=== PATIENT | male | born 1960 | race Caucasian/White ===

== ENCOUNTER → 2021-04-10 10:11 | Outpatient (BNVA) | payer OTHER, SELFPAY | PROVIDERS: PCP Internal Medicine; Visit Provider Urology ==

== ENCOUNTER → 2022-12-06 10:39 | Outpatient (BNVA) | payer BC, SELFPAY | PROVIDERS: PCP Internal Medicine; Visit Provider Nurse Practitioner Family ==

== ENCOUNTER 2023-03-30 16:19 | Outpatient (REF) | payer BC, SELFPAY ==
--- NOTE | ~2023-03-30 | US_ITS ---
EXAMINATION: US RETROPERITONEAL LIMITED (RENAL ONLY) CLINICAL INFORMATION: Calculus of kidney. COMPARISON: Renal ultrasound 03/12/2019 and 12/06/2017. TECHNIQUE: Real-time imaging of the kidneys. FINDINGS: RIGHT KIDNEY: 12.2 x 5.8 x 6.5 cm (SAG x AP x TRV). The kidney is normal in size, contour, and echogenicity. Renal cortical thickness is normal. No calculi or focal parenchymal lesions. No hydronephrosis. LEFT KIDNEY: 13.0 x 5.7 x 5.6 cm (SAG x AP x TRV). The kidney is normal in size, contour, and echogenicity. Renal cortical thickness is normal. No calculi or focal parenchymal lesions. No hydronephrosis. US/US renal BI IMPRESSION: Normal renal ultrasound. No hydronephrosis or nephrolithiasis.
== END 2023-03-30 16:20 | disposition home or self-care (01) ==
LOC: HO.US 16:19
PROVIDERS: Visit Provider Nurse Practitioner Family
DX: N20.0 Calculus of kidney (principal)
CPT/HCPCS: 76775

== ENCOUNTER 2024-04-02 11:26 | Outpatient (AMB) | payer BC, SELFPAY ==
--- NOTE | 2024-04-02 11:27 | A.OFFVIS_ITS ---
Intake Visit Reasons: follow up/U/S Intake Note: Patient is present for f/u Urology Medication:Tadalafil Antibiotic Allergy:none Blood Thinner:none Baseball Glove Shaper Required: No Allergies hayfever Allergy (Unknown, Uncoded 04/02/24 11:53) Unknown Medication List - Last Reconciled 04/02/24 by SIOMARA Gleason tadalafil (Cialis) 5 mg PO DAILY 90 days vardenafil 20 mg PO DAILY PRN HPI Comments Details: Carter is a pleasant 63-year-old male patient of Dr. Hope. He presents to the office today for follow-up of his nephrolithiasis and elevated PSA. In discussion with the patient today he reports since his last office visit here over 1 year ago he has had no bothersome urinary issues or concerns. He reports compliance with 5 mg of Cialis daily and feels this has been helpful with episodes of nocturia as well as ED he had been experiencing. In review of patient's chart it appears during last office visit over 18 months ago recommendations were made for 4 month follow-up however in discussion with the patient today he feels he has had no bothersome issues so he did not feel this was necessary. We discussed importance in doing so and potential for delay in treatment. Previous renal ultrasound results reviewed with the patient today. Bilateral kidneys with no calculi, lesions, and or hydronephrosis. Normal renal ultrasound. PSAs are as follows: PSA: 10/24 4.9, 10/24 2.7 During last office visit recommendation was also made for redraw of PSA in 4 months however this was never obtained.We discussed at length importance in doing so in relation to history of elevated PSA. When asked he currently denies any bothersome urinary issues or concerns. He otherwise denies urinary urgency, urinary frequency, incontinence, hematuria, dysuria, foul smelling urine, changes to urinary stream, flank pain, fever, and or chills. In office urinalysis results reviewed with the patient today. GAVIN offered however deferred. Patient otherwise denies any issues or concerns at this time. [facility] Surgical History (Updated 12/06/22 @ 13:41 by SIOMARA Glesaon) History of left hip replacement Review of Systems Const All systems reviewed & are unremarkable except as noted in HPI and below Reports no additional complaints Eyes Reports no additional complaints ENT Reports no additional complaints Card Reports no additional complaints Resp Reports no additional complaints GI Reports no additional complaints Reports as per HPI Musc Reports no additional complaints Neuro Reports no additional complaints Psych Reports no additional complaints Endo Reports no additional complaints William/Lymph Reports no additional complaints Aller/Immun Reports no additional complaints Physical Exam Const General: cooperative, healthy appearing, comfortable, no acute distress, well developed, alert and awake Orientation/consciousness: patient oriented x3 Limitations: no limitations HEENT Head: Yes normal to inspection, Yes normocephalic and Yes atraumatic Ears: hearing grossly normal bilaterally Eyes General: appearance normal, both eyes and all related structures Neck Neck: Yes normal visual inspection and Yes trachea midline Chest Chest palpation & inspection: normal inspection of the chest Resp Effort & Inspection: normal respiratory effort and able to speak in complete sentences Cardio Rate: regular rate GI Inspection: Yes normal to inspection Rectal Exam - Male: Yes deferred General: Yes no CVA tenderness Back/Spine/Pelvis Back: no CVA tenderness Skin General skin exam: no rashes or lesions noted Neuro General: patient oriented x3 Extrem General: Yes normal to inspection Psych Appearance: grossly normal and well kempt Mental Status: mental status grossly normal Speech and movement: Normal speech and movement present and Clear speech present Affect: normal affect Attitude: cooperative Thought process: Normal thought process present Thought content: Normal thought content present Insight: Good insight present (Psych) Judgement: Good judgement present (Psych) Results AMB Urinalysis, Automated UA Leukoctes 0 Tomeka/uL Last Edit by SAVANNAH Rainey on 04/02/24 11:38 UA Nitrite Negative Last Edit by SAVANNAH Rainey on 04/02/24 11:38 UA Urobilinogen 0.2 mg/dL Last Edit by SAVANNAH Rainey on 04/02/24 11:3 8 UA Protein 0 mg/dL Last Edit by SAVANNAH Rainey on 04/02/24 11:38 UA pH 6.0 Last Edit by SAVANNAH Rainey on 04/02/24 11:38 UA Blood 0 Trevor/uL Last Edit by SAVANNAH Rainey on 04/02/24 11:38 UA Specific Whitfield 1.010 Last Edit by SAVANNAH Rainey on 04/02/24 11: 38 UA Ketone Negative Last Edit by SAVANNAH Rainey on 04/02/24 11:38 UA Bilirubin 0 mg/dL Last Edit by SAVANNAH Rainey on 04/02/24 11:38 UA Glucose 0 mg/dL Last Edit by SAVANNAH Rainey on 04/02/24 11:38 Results Reviewed Results Reviewed: Laboratory Last Values Urine pH (Auto) 6.0 04/02/24 11:36 Specific Whitfield (Auto) 1.010 04/02/24 11:36 Urine Protein (Auto) 0 mg/dL 04/02/24 11:36 Glucose (UA)(Auto) 0 mg/dL 04/02/24 11:36 Urine Ketones (Auto) Negative 04/02/24 11:36 Urine Blood (Auto) 0 Trevor/uL 04/02/24 11:36 Urine Nitrite (Auto) Negative 04/02/24 11:36 Urine Bilirubin (Auto) 0 mg/dL 04/02/24 11:36 Urine Urobilinogen (Auto) 0.2 mg/dL 04/02/24 11:36 Leukocyte Esterase (Auto) 0 Tomeka/uL 04/02/24 11:36 Date of Service: 03/30/23 EXAMINATION: US RETROPERITONEAL LIMITED (RENAL ONLY) FINDINGS: RIGHT KIDNEY: 12.2 x 5.8 x 6.5 cm (SAG x AP x TRV). The kidney is normal in size, contour, and echogenicity. Renal cortical thickness is normal. No calculi or focal parenchymal lesions. No hydronephrosis. LEFT KIDNEY: 13.0 x 5.7 x 5.6 cm (SAG x AP x TRV). The kidney is normal in size, contour, and echogenicity. Renal cortical thickness is normal. No calculi or focal parenchymal lesions. No hydronephrosis. IMPRESSION: Normal renal ultrasound. No hydronephrosis or nephrolithiasis. Assessment & Plan Assessment & Plan (1) Nephrolithiasis: Code(s): N20.0 - Calculus of kidney Category: Medical (2) Erectile dysfunction: Code(s): N52.9 - Male erectile dysfunction, unspecified Category: Medical (3) Weak urinary stream: Code(s): R39.12 - Poor urinary stream Category: Medical (4) Nocturia: Code(s): R35.1 - Nocturia Category: Medical Plan In office urinalysis results reviewed with the patient today; as noted above. Previous renal ultrasound results reviewed with the patient today; as noted above. Continue Cialis 5 mg daily as discussed and prescribed; refill provided. Patient currently denies any bothersome urinary issues or concerns. He reports be happy with current voiding parameters. Discussed, educated, and stressed the importance of following up as recommended and importance in doing so given history of elevated PSA and potential delay in treatment. Discussed obtaining PSA now as well as in 1 year. Will obtain renal ultrasound in 1 year. Follow-up in 1 year with imaging and labs to be completed prior; or sooner with any issues, concerns, and or questions. Orders: Orders US renal BI 1 Year N20.0 - Calculus of kidney Prostate Specific Antigen 1 Year R35.1 - Nocturia, R39.12 - Poor urinary stream AMB Urinalysis Automated Today Z13.9 - Encounter for screening, unspecified Prostate Specific Antigen Today R35.1 - Nocturia, R39.12 - Poor urinary stream Medications: Refilled tadalafil (Cialis) [id number] [facility] [id number] Member [id number] 5 mg PO DAILY 90 days 90 tabs 3RF Patient Instructions: The patient had an opportunity to ask questions regarding the treatment plan. All questions were answered. Physical exam, labs, and imaging were discussed and reviewed in detail. As well as risks, benefits, and discussion of treatment choices. No major barriers to understanding were identified. The patient expressed understanding and agreement with the above treatment plan. The patient was made aware they should contact our office by phone for worsening of their current condition, the appearance of new symptoms, or with any questions or concerns. Compliance is encouraged with any medications and follow up testing that is ordered. It is a privilege to be allowed the opportunity to participate in? your urological care.? Again, if you have any questions or concerns If you have any questions or concerns please do not hesitate to contact me. The office is [phone]. This note is constructed using voice recognition software. While every effort has been made to ensure accuracy chief enterprise architect errors may have been included. Yours sincerely, SIOMARA Gleason Coding Level of Care Code Est Pt Level 3 (76177) Diagnoses Nephrolithiasis N20.0 Erectile dysfunction N52.9 Weak urinary stream R39.12 Nocturia R35.1
== END 2024-04-02 11:55 | disposition home or self-care (01) ==
PROVIDERS: PCP Internal Medicine; Visit Provider Nurse Practitioner Family
DX: N20.0 Calculus of kidney (principal); N52.9 Male erectile dysfunction, unspecified; R39.12 Poor urinary stream; R35.1 Nocturia; Z13.9 Encounter for screening, unspecified
CPT/HCPCS: 99213

== ENCOUNTER → 2024-04-02 11:26 | Outpatient (BNVA) | payer BC, SELFPAY | PROVIDERS: PCP Internal Medicine; Visit Provider Nurse Practitioner Family | DX: N52.9 Male erectile dysfunction, unspecified (principal); R39.12 Poor urinary stream; R35.1 Nocturia; Z87.442 Personal history of urinary calculi; Z79.899 Other long term (current) drug therapy | CPT/HCPCS: 81003 ==

== ENCOUNTER 2025-01-08 09:22 | Outpatient (AMB) | payer BC, SELFPAY ==
--- NOTE | 2025-01-08 09:22 | MHC.OFFVIS ---
Intake Visit Reasons: discuss imaging need Intake Note: Patient is present via telehealth to discuss imaging need Urology Medication:Tadalafil Antibiotic Allergy:none Blood Thinner:none Library Circulation Department Chief Required: No Allergies hayfever Allergy (Unknown, Uncoded 04/02/24 11:53) Unknown Medication List - Last Reconciled 01/08/25 by MARCOS Gleason- tadalafil (Cialis) 5 mg PO DAILY 90 days HPI Comments Details: Carter is a pleasant 64-year-old male patient of Dr. Hope. He is being followed up on today via video telehealth for his nephrolithiasis and elevated PSA. In discussion with the patient today he reports to be doing and feeling well. He discusses scheduling today's appointment to discuss plan of care. He reports episode of nephrolithiasis was many years ago (15 years ago) and does not wish to continue with surveillance monitoring of nephrolithiasis at this time as he has not had any issues with kidney stones in many years. He does report recently following up with his PCP for his annual physical and believes he had PSA perform a PCP. However call to PCP no recent lab value for PSA. We did discussed importance in doing so. During last office visit patient had been experiencing episodes of nocturia as well as ED in recommendations were made for low-dose 5 mg Cialis daily for bladder stability as well as potential treatment for ED. He does feel this has been helpful however is enquiring potential increased. We did discussed daily dosing of tadalafil with p.r.n. dosing/on demand dosing. We discussed lifestyle modifications to assist with ED as well as further treatment options and risks and benefits of these treatment options. He otherwise denies any bothersome urinary issues. He denies urinary urgency, urinary frequency, incontinence, hematuria, dysuria, foul smelling urine, changes to urinary stream, flank pain, fever, and or chills. PSAs are as follows: PSA: 10/24 4.9, 10/24 2.7 Patient otherwise denies any issues or concerns at this time. [facility] Surgical History History of left hip replacement Review of Systems Const All systems reviewed & are unremarkable except as noted in HPI and below Reports no additional complaints Eyes Reports no additional complaints ENT Reports no additional complaints Card Reports no additional complaints Resp Reports no additional complaints GI Reports no additional complaints Reports as per HPI Musc Reports no additional complaints Neuro Reports no additional complaints Psych Reports no additional complaints Endo Reports no additional complaints William/Lymph Reports no additional complaints Aller/Immun Reports no additional complaints Physical Exam Const General: cooperative, comfortable, no acute distress and well developed Orientation/consciousness: patient oriented x3 Resp Effort & Inspection: normal respiratory effort and able to speak in complete sentences Neuro General: patient oriented x3 Psych Appearance: well kempt Speech and movement: Clear speech present Attitude: cooperative Thought content: Normal thought content present Insight: Fair insight present (Psych) Judgement: Fair judgement present (Psych) Telehealth Telehealth Telehealth Platform: [employer] Location of provider rendering services: practice address Location of patient: address on file Patient Identification confirmed using: Name, : Yes Telehealth method: video Patient verbally consented to treatment: Yes Patient verbally consented to billing insurance company: Yes Patient informed of any privacy concerns related to visit: Yes Minutes spent on Phone/Video with Pt.: 15 Assessment & Plan Assessment & Plan (1) Nocturia: Code(s): R35.1 - Nocturia Category: Medical (2) Erectile dysfunction: Code(s): N52.9 - Male erectile dysfunction, unspecified Category: Medical Plan We discussed potential causes of ED as well as further treatment options and risks and benefits of these treatment options. We discussed lifestyle modifications to assist with ED as well as overall health and well-being. Continue Cialis daily. Prescription provided for p.r.n. dosing. We discussed importance of obtaining PSA with history of elevated PSA in the past. Will obtain PSA and testosterone free and total for further assessment evaluation. He currently denies any bothersome urinary issues. He reports be happy with current voiding parameters. Follow-up in 3-6 months with PSA; or sooner with any issues, concerns, and or questions. Orders: Orders Prostate Specific Antigen Today N52.9 - Male erectile dysfunction, unspecified, Z12.5 - Encounter for screening for malignant neoplasm of prostate Testosterone, Free/Total Today N52.9 - Male erectile dysfunction, unspecified Medications: New tadalafil (Cialis) Take 1 tablet 1 hour prior to sexual activity not to exceed more than 3 times per week 10 mg PO .PRN PRN 12 tabs 3RF sexual activity 30 days Refilled tadalafil (Cialis) [id number] [facility] [id number] Member [id number] 5 mg PO DAILY 90 tabs 3RF 90 days Patient Instructions: The patient had an opportunity to ask questions regarding the treatment plan. All questions were answered. Physical exam, labs, and imaging were discussed and reviewed in detail. As well as risks, benefits, and discussion of treatment choices. No major barriers to understanding were identified. The patient expressed understanding and agreement with the above treatment plan. The patient was made aware they should contact our office by phone for worsening of their current condition, the appearance of new symptoms, or with any questions or concerns. Compliance is encouraged with any medications and follow up testing that is ordered. It is a privilege to be allowed the opportunity to participate in? your urological care.? Again, if you have any questions or concerns If you have any questions or concerns please do not hesitate to contact me. The office is [phone]. This note is constructed using voice recognition software. While every effort has been made to ensure accuracy computer help desk representative errors may have been included. Yours sincerely, SIOAMRA Gleason Coding Level of Care Code Tele Est Pt Level 3 (02927) Complex EM visit Add On G2211 Diagnoses Nocturia R35.1 Erectile dysfunction N52.9
--- OUTSIDE RECORDS SUMMARY | 2025-01-08 09:47 | XMS_ITS | Clinical Summary ---
Author Organization [facility] [address] Address [address] [place] [address] Phone Care Team Providers Care Inner Tube Inserter Name Role Phone Matthew Hope MD Primary Care Provider [phone] Allergies Active Allergy Reactions Criticality Noted Date Comments Oxycodone-Acetaminophen 11/29/2024 Medications atorvastatin (LIPITOR) 10 mg tablet Take 1 tablet (10 mg total) by mouth 1 (one) time each day. 11/19/2024 Active tadalafiL (CIALIS) 5 mg tablet Take 1 tablet (5 mg total) by mouth 1 (one) time each day. 11/24/2024 Active Zepbound 7.5 mg/0.5 mL injection 11/27/2024 Active Encounters Date Type Department Care Team Description 11/29/2024 Telephone Gastroenterology - [address] [id number] Ken Yan MD SPECIAL PROCEDURE from Last 3 Months Social History Tobacco Use Types Packs/Day Years Used Date Smoking Tobacco: Never Assessed Sex and Gender Information Value Date Recorded Sex Assigned at Not on file Legal Sex Male 12:11 AM EST Gender Identity Not on file Sexual Orientation Not on file Plan of Treatment Upcoming Encounters Date Type Department Care Team ([facility] st Contact Info) Description 03/01/2025 11:00 AM EDT Appointment [facility] Endoscopy [address] [place] [id number] Pee Silva MD [address] [id number] Health Maintenance Due Date Last Done Comments DTaP,Tdap,and Td Vaccines (1 - Tdap) 1981 Pneumococcal Vaccine: 50+ Ye ars (1 of 1 - PCV) 2012 Zoster Vaccines (1 of 2) 2012 Cholesterol Screening (Lipid Panel) 06/06/2022 Colorectal Cancer Screening: Colonoscopy 06/06/2022 Depression Screening 06/06/2022 HIV Screening 06/06/2022 Hepatitis C Screening 06/06/2022 Social Influencers of Health Screening 06/06/2022 COVID-19 Vaccine (1 - 2023-2 5 season) 2024 Influenza Vaccine (#1) 2025 RSV Immunization Adult Patie nts (1 - 1-dose 75+ series) 2037 HIB Vaccines Aged Out No longer eligi ble based on patient's age to complete this topic HPV Vaccines Aged Out No longer eligi ble based on patient's age to complete this topic Hepatitis A Vaccines Aged Out No long er eligible based on patient's age to complete this topic Hepatitis B Vaccines Aged Out No long er eligible based on patient's age to complete this topic IPV Vaccines Aged Out No longer eligi ble based on patient's age to complete this topic MMR Vaccines Aged Out No longer eligi ble based on patient's age to complete this topic Meningococcal ACWY Vaccine Aged Out N o longer eligible based on patient's age to complete this topic Meningococcal B Vaccine Aged Out No l onger eligible based on patient's age to complete this topic RSV Immunization Patients Un hilary 20 months Aged Out No longer eligible b ased on patient's age to complete this topic Varicella Vaccines Aged Out No longer eligible based on patient's age to complete this topic Insurance [facility] Care Teams Inner Tube Inserter Relationship Specialty Start Date End Date Matthew Hope MD [address] [place] [address] PCP - General Internal Medicine 11/29/24
== END 2025-01-08 10:38 | disposition home or self-care (01) ==
LOC: HO.HUSH 09:22
PROVIDERS: PCP Internal Medicine; Visit Provider Nurse Practitioner Family
DX: R35.1 Nocturia (principal); N52.9 Male erectile dysfunction, unspecified
CPT/HCPCS: 99213

== ENCOUNTER 2025-05-15 10:10 | Outpatient (AMB) | payer BC, SELFPAY ==
--- NOTE | 2025-05-15 10:11 | MHC.OFFVIS ---
Intake Visit Reasons: 4m/Labs Intake Note: Patient is present for 4M/LABS Urology Medication:TADALAFIL Antibiotic Allergy:NONE Blood Thinner:NONE Extension Service Specialist Required: No Allergies hayfever Allergy (Unknown, Uncoded 05/15/25 10:45) Unknown Medication List - Last Reconciled 05/15/25 by SIOMARA Gleason tadalafil (Cialis) 5 mg PO DAILY 90 days tadalafil (Cialis) 10 mg PO .PRN PRN 30 days HPI Comments Details: Carter is a pleasant 65-year-old male patient of Dr. Hope. He is being followed up on today via video telehealth for his nephrolithiasis, elevated PSA, and ED. In discussion with the patient today he reports to be doing and feeling well. He reports since his last office visit here he has since discontinued daily dosing of Cialis as well as p.r.n. dosing as he has had multiple stressful events to include deaths in his family. He reports noting increased episodes of nocturia since discontinuing daily dose of tadalafil. He reports nocturia up to 3 times per night. Most recent PSA and testosterone results reviewed with the patient today as noted and trended below: PSA: 10/24 4.9, 10/24 2.7, 04/27 4.1 Testosterone: 04/27 606 We did discuss increase in PSA as well as variability in PSA over the last 2 years. He denies having had any bothersome issues with his history of nephrolithiasis. He denies any bothersome urinary issues throughout the day. He denies urinary urgency, urinary frequency, incontinence, hematuria, dysuria, foul smelling urine, changes to urinary stream, flank pain, fever, and or chills. He reports currently he has not been utilizing p.r.n. dosing of Cialis as he is not sexually active. We discussed obtaining sleep study given patient reporting nocturia as well as snoring. We also discussed obtaining retroperitoneal ultrasound and redraw of PSA. We did discussed potential causes of nocturia as well as elevated PSA. We discussed further treatment options and risks and benefits of these treatment options. All questions were answered. He otherwise offers no other issues or concerns at this time. [facility] Medical History (Updated 05/15/25 @ 10:48 by SIOMARA Gleason) Elevated PSA Surgical History History of left hip replacement Review of Systems Const All systems reviewed & are unremarkable except as noted in HPI and below Reports no additional complaints Eyes Reports no additional complaints ENT Reports no additional complaints Card Reports no additional complaints Resp Reports no additional complaints GI Reports no additional complaints Reports as per HPI Musc Reports no additional complaints Neuro Reports no additional complaints Psych Reports no additional complaints Endo Reports no additional complaints William/Lymph Reports no additional complaints Aller/Immun Reports no additional complaints Physical Exam Const General: cooperative, comfortable, no acute distress and well developed Orientation/consciousness: patient oriented x3 Resp Effort & Inspection: normal respiratory effort and able to speak in complete sentences Neuro General: patient oriented x3 Psych Appearance: well kempt Speech and movement: Clear speech present Attitude: cooperative Thought content: Normal thought content present Insight: Fair insight present (Psych) Judgement: Fair judgement present (Psych) Telehealth Telehealth Telehealth Platform: Telephone Location of provider rendering services: practice address Location of patient: address on file Patient Identification confirmed using: Name, : Yes Telehealth method: video Patient verbally consented to treatment: Yes Patient verbally consented to billing insurance company: Yes Patient informed of any privacy concerns related to visit: Yes Minutes spent on Phone/Video with Pt.: 15 Assessment & Plan Assessment & Plan (1) Nocturia: Code(s): R35.1 - Nocturia Category: Medical (2) Snoring: Code(s): R06.83 - Snoring Category: Medical (3) Elevated PSA: Code(s): R97.20 - Elevated prostate specific antigen [PSA] Category: Medical (4) Erectile dysfunction: Code(s): N52.9 - Male erectile dysfunction, unspecified Category: Medical (5) Weak urinary stream: Code(s): R39.12 - Poor urinary stream Category: Medical (6) Nephrolithiasis: Code(s): N20.0 - Calculus of kidney Category: Medical Plan Recent PSA and testosterone results reviewed with the patient today; as noted above. Will restart daily dosing of tadalafil to assist with bladder stability. Will obtain sleep study for further assessment evaluation. Will obtain retroperitoneal ultrasound for further assessment evaluation. We discussed redraw of PSA with no sex the night before, no caffeine morning of, and no heavy lifting 1-2 days prior. We did discussed potential causes of elevated PSA as well as further treatment options and risks and benefits of these treatment options. We discussed the importance of limiting fluids 2-3 hours prior to bed to decrease episodes of nocturia. Follow-up in 1-3 months with imaging, lab, sleep study, and PVR; or sooner with any issues, concerns, and or questions. Orders: Orders RT home sleep study Today R06.83 - Snoring, R35.1 - Nocturia US retroperitoneal comp Today R35.1 - Nocturia, R39.12 - Poor urinary stream PSA,Total (Free>4and<10) Today R35.1 - Nocturia, R97.20 - Elevated prostate specific antigen [PSA] Patient Instructions: The patient had an opportunity to ask questions regarding the treatment plan. All questions were answered. Physical exam, labs, and imaging were discussed and reviewed in detail. As well as risks, benefits, and discussion of treatment choices. No major barriers to understanding were identified. The patient expressed understanding and agreement with the above treatment plan. The patient was made aware they should contact our office by phone for worsening of their current condition, the appearance of new symptoms, or with any questions or concerns. Compliance is encouraged with any medications and follow up testing that is ordered. It is a privilege to be allowed the opportunity to participate in? your urological care.? Again, if you have any questions or concerns If you have any questions or concerns please do not hesitate to contact me. The office is [phone]. This note is constructed using voice recognition software. While every effort has been made to ensure accuracy semiconductors wafer breaker errors may have been included. Yours sincerely, SIOMARA Gleason Coding Level of Care Code Est Pt Level 3 (00333) Complex EM visit Add On G2211 Diagnoses Nocturia R35.1 Snoring R06.83 Elevated PSA R97.20 Erectile dysfunction N52.9 Weak urinary stream R39.12 Nephrolithiasis N20.0
--- OUTSIDE RECORDS SUMMARY | 2025-05-15 11:59 | XMS_ITS | Clinical Summary ---
Author Organization [facility] [address] [facility] Address [address] [place] [address] Phone Care Team Providers Care Hospital Ward Clerk Name Role Phone Matthew Hope MD Primary Care Provider [phone] Allergies No known active allergies Medications atorvastatin (LIPITOR) 10 mg tablet Take 1 tablet (10 mg total) by mouth 1 (one) time each day. 5 Active tadalafiL (CIALIS) 5 mg tablet Take 1 tablet (5 mg total) by mouth 1 (one) time each day. 5 Active Zepbound 7.5 mg/0.5 mL injection 5 Active bisacodyL (DULCOLAX) 5 mg EC tablet Take 2 tablets by mouth right before beginning bowel prep. See instructions provided by the office 2 tablet 5 Active polyethylene glycol (Golytely) 236-22.74-6.74 -5.86 gram solution Take 4L by mouth once for one dose. May substitue any PEG. Starting at 2PM the day before your procedure drink 1 8oz glasses at your own pace until you complete half of the gallon. Finish 2nd half of the gallon at 8PM. 4000 mL 5 Active Encounters Date Type Department Care Team Description 03/01/2025 11:33 AM EDT Anesthesia Event [facility] Endoscopy [address] [place] [id number] Misael Melara MD 03/01/2025 10:16 AM EDT - 03/01/2025 11:59 PM EDT Hospital Encounter [facility] Endoscopy [address] [place] [address] Pee Silva MD Colon cancer screening Discharge Disposition: Home or Self Care from Last 3 Months Surgical History Surgery Date Site/Laterality Comments COLONOSCOPY LAMINECTOMY HIP SURGERY Medical History Medical History Date Comments Hyperlipidemia Cardiac murmur GERD (gastroesophageal reflux disease) Chronic kidney disease Social History Tobacco Use Types Packs/Day Years Used Date Smoking Tobacco: Never Smokeless Tobacco: Never Tobacco Cessation:Counseling Given: Not Answered Alcohol Use Standard Drinks/Week Comments Yes 0 (1 standard drink = 0.6 oz pur e alcohol) Interpersonal Safety Answer Date Record ed Physical Abuse Unrecognized value 03/01/2025 Verbal Abuse Unrecognized value 03/01/2025 Sex and Gender Information Value Date Recorded Sex Assigned at Male 03/01/2025 10:15 AM EDT Legal Sex Male 12:11 AM EST Gender Identity Male 03/01/2025 10:15 AM EDT Sexual Orientation Straight 03/01/2025 10 :15 AM EDT Obstetrics History Last Filed Vital Signs Vital Sign Reading Time Taken Comments Blood Pressure 137/70 03/01/2025 12:13 PM EDT Pulse 53 03/01/2025 12:13 PM EDT Temperature 36.8 C (98.3 F) 03/01/2025 12:02 PM EDT Respiratory Rate 16 03/01/2025 12:13 PM EDT Oxygen Saturation 98% 03/01/2025 12:13 PM EDT Inhaled Oxygen Concentration - - Weight 99.8 kg (220 lb) 03/01/2025 10:48 AM EDT Height 185.4 cm (6' 1 ) 03/01/2025 10:48 AM EDT Body Mass Index 29.03 03/01/2025 10:48 AM EDT Plan of Treatment Health Maintenance Due Date Last Done Comments DTaP,Tdap,and Td Vaccines (1 - Tdap) 1981 Pneumococcal Vaccine: 50+ Years (1 of 1 - PCV) 2012 Cholesterol Screening (Lipid Panel) 06/06/2022 HIV Screening 06/06/2022 Hepatitis C Screening 06/06/2022 Social Influencers of Health Screening 06/06/2022 Depression Screening 07/04/2024 Zoster Vaccines (2 of 2) 01/14/2025 11/19/2024 COVID-19 Vaccine (4 - 2024-2 6 season) 2025 05/22/2021, 10/01/2020, 09/03/2020 Influenza Vaccine (#1) 2025 Colorectal Cancer Screening: Colonoscopy 03/01/2028 03/01/2025 RSV Immunization Adult Patients (1 - 1-dose 75+ series) 2037 HIB [...] to complete this topic RSV Immunization Patients Under 20 months Aged Out No longer eligible b ased on patient's age to complete this topic Varicella Vaccines Aged Out No longer eligible based on patient's age to complete this topic Procedures Procedure Name Priority Date/Time Associated Diagnosis Comments COLONOSCOPY Routine 03/01/2025 11:52 AM EDT Colon cancer screening TISSUE EXAM Routine 03/01/2025 11:44 AM EDT Colon cancer screening from Last 3 Months Results * COLONOSCOPY Anesthesia - MAC; [facility] ENDOSCOPY (03/01/2025 11:52 AM EDT) Anatomical Region Laterality Modality Other 03/01/2025 11:2 8 AM EDT Impressions 03/01/2025 11:56 AM EDT - One 6 mm polyp in the cecum, removed with a cold snare. Resected and retrieved. - Two 5 to 6 mm polyps at the splenic flexure, removed with a cold snare. Resected and retrieved. - Diverticulosis in the sigmoid colon. Recommendation: - Await pathology results. - Repeat colonoscopy in 3 years for surveillance. Narrative 03/01/2025 11:56 AM EDT [facility] GI Patient Name: Beth Leo Procedure Date: 03/01/2025 11:28 AM Date of : 1960 Age: 64 Room: ROOM 14 Gender: Male Note Status: Finalized Attending MD: Pee Silva MD, Procedure Date No Time: 03/01/2025 Procedure: Colonoscopy Indications: Screening for colorectal malignant neoplasm Providers: Pee Silva MD Referring MD: Pee Silva MD Medicines: Propofol per Anesthesia Complications: No immediate complications. Estimated Blood Loss: Estimated blood loss was minimal. Procedure: Pre-Anesthesia Assessment: - ASA Grade Assessment: II - A patient with mild systemic disease. After I obtained informed consent, the scope was passed under direct vision. Throughout the procedure, the patient's blood pressure, pulse, and oxygen saturations were monitored continuously.The Olympus Colonoscope was introduced through the anus and advanced to the cecum, identified by appendiceal orifice and ileocecal valve. The colonoscopy was performed without difficulty. The patient tolerated the procedure well. The quality of the bowel preparation was good. Findings: The perianal and digital rectal examinations were normal. A 6 mm polyp was found in the cecum. The polyp was sessile. The polyp was removed with a cold snare. Resection and retrieval were complete. Two sessile polyps were found in the splenic flexure. The polyps were 5 to 6 mm in size. These polyps were removed with a cold snare. Resection and retrieval were complete. Multiple diverticula were found in the sigmoid colon. Procedure Code(s): --- Professional --- 60490, Colonoscopy, flexible; with removal of tumor(s), polyp(s), or other lesion(s) by snare technique Diagnosis Code(s): --- Professional --- Z12.11, Encounter for screening for malignant neoplasm of colon D12.0, Benign neoplasm of cecum D12.3, Benign neoplasm of transverse colon (hepatic flexure or splenic flexure) K57.30, Diverticulosis of large intestine without perforation or abscess without bleeding CPT copyright 2020 [employer]. All rights reserved. The codes documented in this report are preliminary and upon market development specialist review may be revised to meet current compliance requirements. Pee Silva MD 03/01/2025 11:56:38 AM This report has been signed electronically.Pee Silva MD Number of Addenda: 0 Note Initiated On: 03/01/2025 11:28 AM Scope In: Scope Out: Endoscopy Department at [facility] - [address] [place] [id number] Procedure Note Pee Silva MD - 03/01/2025 [facility] GI Patient Name: Beth Leo Procedure Date: 03/01/2025 11:28 AM Date of : 1960 Age: 64 Room: ROOM 14 Gender: Male Note Status: Finalized Attending MD: Pee Silva MD, Procedure Date No Time: 03/01/2025 Procedure: Colonoscopy Indications: Screening for colorectal malignant neoplasm Providers: Pee Silva MD Referring MD: Pee Silva MD Medicines: Propofol per Anesthesia Complications: No immediate complications. Estimated Blood Loss: Estimated blood loss was minimal. Procedure: Pre-Anesthesia Assessment: - ASA Grade Assessment: II - A patient with mild systemic disease. After I obtained informed consent, the scope was passed under direct vision. Throughout theprocedure, the patient's blood pressure, pulse, and oxygen saturations were monitored continuously.The Olympus Colonoscope was introduced through the anus and advanced to the cecum, identified by appendiceal orifice and ileocecal valve. The colonoscopy was performed without difficulty. The patient tolerated the procedure well. The quality of the bowel preparation was good. Findings: The perianal and digital rectal examinations were normal. A 6 mm polyp was found in the cecum. The polyp was sessile. The polyp was removed with a cold snare. Resection and retrieval were complete. Two sessile polyps were found in the splenicflexure. The polyps were 5 to 6 mm in size. These polypswere removed with a cold snare. Resection and retrieval were complete. Multiple diverticula were found in the sigmoidcolon. Procedure Code(s): --- Professional --- 51642, Colonoscopy, flexible; with removal of tumor(s), polyp(s), or other lesion(s) by snare technique Diagnosis Code(s): --- Professional --- Z12.11, Encounter for screening for malignantneoplasm of colon D12.0, Benign neoplasm of cecum D12.3, Benign neoplasm of transverse colon (hepatic flexure or splenic flexure) K57.30, Diverticulosis of large intestine without perforation or abscess without bleeding CPT copyright 2020 [employer]. All rights reserved. The codes documented in this report are preliminary and upon market development specialist reviewmay be revised to meet current compliance requirements. Pee Silva MD 03/01/2025 11:56:38 AM This report has been signed electronically.Pee Silva MD Number of Addenda: 0 Note Initiated On: 03/01/2025 11:28 AM Scope In: Scope Out: Endoscopy Department at [facility] - [address] [place] [id number] IMPRESSION: - One 6 mm polyp in the cecum, removed with a cold snare. Resected and retrieved. - Two 5 to 6 mm polyps at the splenic flexure,removed with a cold snare. Resected and retrieved. - Diverticulosis in the sigmoid colon. Recommendation: - Await pathology results. - Repeat colonoscopy in 3 years for surveillance. us Pee Silva MD GI~PROCEDURE ORDERABLES Fin al Result * Tissue exam (03/01/2025 11:44 AM EDT) Final Diagnosis A. Large Intestine, Cecum, polyp: - Tubular adenoma. B. Large intestine, Splenic flexure, 2 polyps: - Tubular adenoma(s). 03/05/2025 9:53 AM EDT [facility] Gross Description A. Large Intestine, Cecum, polyp: Labeled colon cecum polyp in . Received in formalin is a 0.3 cm irregular herron mucosal tissue fragment which is wrapped in paper and submitted in toto in one cassette, one piece, multiple levels on one slide. B. Large intestine, Splenic flexure, 2 polyps: Labeled splenic flex two polyps . Received in formalin are four irregular herron mucosal tissue fragments, each measuring approximately 0.2 cm in greatest dimension, which are wrapped in paper and submitted in toto in one cassette, four pieces, multiple levels on one slide. GRACIA 03/05/2025 9:[address] [facility] Disclaimer Unless otherwise specified, all tissue is 10% NB formalin fixed and paraffin embedded. 03/05/2025 9:[address] [facility] Tissue Cecum structure / Unknown 03/01/2025 11:44 AM EDT 03/01/2025 12:52 PM EDT Tissue specimen (specimen) Structure of left colic flexure / Unknown 03/01/2025 11:47 AM EDT 03/01/2025 12:52 PM EDT us Pee Silva MD LAB PATHOLOGY ORDERABLES Fi nal Result [facility] [address] [place] [address], from Last 3 Months Insurance [facility] Care Teams Hospital Ward Clerk Relationship Specialty Start Date End Date Matthew Hope MD [address] [place] [address] PCP - General Internal Medicine 11/29/24
== END 2025-05-15 10:51 | disposition home or self-care (01) ==
LOC: HO.HUSH 10:10
PROVIDERS: PCP Internal Medicine; Visit Provider Nurse Practitioner Family
DX: R35.1 Nocturia (principal); R06.83 Snoring; R97.20 Elevated prostate specific antigen [PSA]; N52.9 Male erectile dysfunction, unspecified; R39.12 Poor urinary stream; N20.0 Calculus of kidney
CPT/HCPCS: 99213